=== PATIENT | male | born 1995 | race Caucasian/White ===

== ENCOUNTER → 2020-09-26 | Outpatient (CLI) | payer BC ==
--- NOTE | 2020-09-26 09:48 | US ---
EXAMINATION TYPE: US renal artery duplex complet DATE OF EXAM: 09/26/2020 COMPARISON: NONE CLINICAL HISTORY: I10 Essential hypertension. HTN for 1 month MEASUREMENTS: RENAL SIZE: Rt Kidney: 10.8 x 5.0 x 5.1cm Lt Kidney: 12.2 x 5.8 x 5.3cm RESISTANCE INDEX Right: 0.62 Left: 0.62 RA/AO RATIO (< 3.5 ) Right: 1.3 Left: 1.4 RA VELOCITY ( < 180 cm/s) Right: 170.7cm/s Left: 174.2cm/s Technical limitations due to patient's body habitus and large amount of overlying bowel content. Pr oximal aorta obscured. visualized portions of aorta appear unremarkable. Renals appear unremarkable. No evidence of renal artery stenosis as visualized. Limited evaluation of left renal artery due to ov erlying bowel content. Visualized portion of aorta shows no aneurysm. Kidneys are symmetric and within normal limits in size . No hydronephrosis. Renal velocity measurements upper limits of normal. Ratios and resistive indices are within normal limits. Satisfactory phasicity. IMPRESSION: No convincing evidence for hemodynamic significant focal renal artery stenosis. Findings correlate with underlying uncontrolled hypertension with velocity measurements upper limits of normal .
== END ==
LOC: RADUSWWP 07:09
PROVIDERS: ATTEND Family Medicine
DX: I10 Essential (primary) hypertension (principal)
CPT/HCPCS: 93975

== ENCOUNTER → 2021-07-23 | Outpatient (CLI) | payer BC ==
[2021-07-23 12:33] LABS: Basophils # (A) 0.1 k/uL (0-0.2); Basophils % (A) 1 %; Eosinophils # (A) 0.3 k/uL (0-0.7); Eosinophils % (A) 2 %; HCT 48.3 % (39.0-53.0); HGB 16.3 gm/dL (13.0-17.5); Lymphocytes # (A) 2.3 k/uL (1.0-4.8); Lymphocytes % (A) 22 %; MCH 28.1 pg (25.0-35.0); MCHC 33.8 g/dL (31.0-37.0); MCV 83.1 fL (80.0-100.0); Mean Platelet Volume 8.4; Monocytes # (A) 0.6 k/uL (0-1.0); Monocytes % (A) 6 %; Neutrophils # (A) 7.1 k/uL (1.3-7.7); Neutrophils % (A) 68 %; Platelet Count 247 k/uL (150-450); RBC 5.81 m/uL (4.30-5.90); RDW 13.3 % (11.5-15.5); WBC 10.5 k/uL (3.8-10.6)
[2021-07-23 12:45] LABS: INR 0.9 (<1.2); Partial Thromboplastin Time 23.8 sec (22.0-30.0)
[2021-07-23 12:58] LABS: ALT 42 U/L (4-49); AST 40 U/L (17-59); African American GFR (CKD) >90 (>60 ml/min/1.73 sqM); Albumin 4.3 g/dL (3.5-5.0); Albumin/Globulin Ratio 1.5; Alkaline Phosphatase 91 U/L (38-126); Anion Gap 11 mmol/L; Blood Urea Nitrogen 15 mg/dL (9-20); Calcium 9.4 mg/dL (8.4-10.2); Carbon Dioxide 23 mmol/L (22-30); Chloride 105 mmol/L (98-107); Globulin 2.9 g/dL; Glucose 116 mg/dL (74-99); Non-African American GFR(CKD) >90 (>60 ml/min/1.73 sqM); Potassium 4.1 mmol/L (3.5-5.1); Sodium 139 mmol/L (137-145); Total Bilirubin 0.6 mg/dL (0.2-1.3); Total Protein 7.2 g/dL (6.3-8.2)
[2021-07-23 13:14] LABS: T4, Free (Free Thyroxine) 1.03 ng/dL (0.78-2.19)
[2021-07-23 19:17] LABS: Chol/HDL Ratio 5.93 Ratio
== END | disposition home or self-care (01) ==
LOC: LABWHC1 11:18
PROVIDERS: ATTEND Physician Assistant Medical
DX: R07.89 Other chest pain (principal)
CPT/HCPCS: 36415; 80053; 80061; 84439; 84443; 84484; 85025; 85610; 85730

== ENCOUNTER → 2021-08-05 | Outpatient (CLI) | payer BC ==
--- NOTE | 2021-08-05 12:37 | ECHOF ---
Referral Reason:R07.89 chest pain MEASUREMENTS -------- HEIGHT: 180.3 cm WEIGHT: 148.8 kg BP: RVIDd: 3.1 cm (< 3.3) IVSd: 1.2 cm (0.6 - 1.1) LVIDd: 4.5 cm (3.9 - 5.3) LVPWd: 1.1 cm (0.6 - 1.1) IVSs: 1.4 cm LVIDs: 3.0 cm LVPWs: 1.7 cm LA Diam: 4.0 cm (2.7 - 3.8) MV E Tamir: 0.76 m/s MV DecT: 159 ms MV A Tamir: 0.80 m/s MV E/A Ratio: 0.96 RAP: 5.00 mmHg RVSP: 12.14 mmHg FINDINGS -------- Sinus rhythm. This was a technically adequate study. Morbid Obesity LV size, wall thickness and systolic function are normal, with an EF greater than 55%. The left silviano tricular size is normal. The right ventricle is normal in size. The left atrial size is normal. The right atrial size is normal. The aortic valve is trileaflet, and appears structurally normal. No aortic stenosis or regurgitation. Mild mitral regurgitation is present. Mild tricuspid regurgitation present. Right ventricular systolic pressure is normal at < 35 mmHg. There is no pulmonic regurgitation present. There is no pericardial effusion. CONCLUSIONS -------- 1. Morbid Obesity 2. LV size, wall thickness and systolic function are normal, with an EF greater than 55%. 3. The left ventricular size is normal. 4. The right ventricle is normal in size. 5. The left atrial size is normal. 6. The right atrial size is normal. 7. The aortic valve is trileaflet, and appears structurally normal. No aortic stenosis or regurgitati on. 8. Mild mitral regurgitation is present. 9. Mild tricuspid regurgitation present. 10. There is no pericardial effusion. MAMMAL KEEPER: Jonna Lopez RDCS
== END | disposition home or self-care (01) ==
LOC: RADECHMAIN 08:25
PROVIDERS: ATTEND Family Medicine
DX: I08.1 Rheumatic disorders of both mitral and tricuspid valves (principal); E66.01 Morbid (severe) obesity due to excess calories
CPT/HCPCS: 93306

== ENCOUNTER → 2021-09-24 | Outpatient (CLI) | payer BC ==
--- NOTE | 2021-09-24 11:00 | P.STRESS ---
- Stress Test Note Stress Test Results/Findings: Exam Performed: stress test Exam Date: 09/24/21 Reason for Exam: CHEST PAIN Height: 5 ft 11 in Weight: 145.15 kg Protocol: DAVID Stage: 4 Duration of Exercise: 10:09 Resting Heart Rate: 92 Resting Blood Pressure: 165/94 Maximum Achieved Heart Rate: 168 Maximum Achieved Blood Pressure: 207/73 85% PMHR: 167 100% PMHR: 197 METS: 12.1 Technologist Comment: Stress Test Results/Findings: This is a 25-year-old gentleman with history of hypertension and hypercholesterolemia being evaluated for symptoms of chest pain. Stress data: Baseline EKG showed a sinus rhythm. Blood pressure at rest is 165/94 with a pulse of 92. Patient walked on the David protocol for 10 minutes and 9 seconds achieving a maximal heart rate of 168 with a blood pressure of 207/73. EKGs taken during and after exercise did not reveal any significant changes from the baseline. Patient complained of slight chest pain. No arrhythmias were detected. Final impression: #1. Negative stress test #2. Patient complained of some atypical chest pain #3. Good exercise capacity #4. No arrhythmias noted
== END | disposition home or self-care (01) ==
LOC: RADNMMAIN 09-23 08:15
PROVIDERS: ATTEND Family Medicine
DX: R07.89 Other chest pain (principal)
CPT/HCPCS: 93017

== ENCOUNTER → 2022-03-02 | Outpatient (CLI) | payer OTHER ==
--- NOTE | 2022-03-02 14:49 | US ---
EXAMINATION TYPE: US axilla RT DATE OF EXAM: 03/02/2022 COMPARISON: NONE CLINICAL HISTORY: L02.411 CUTANEOUS ABSCESS OF RIGHT AXILLA. Abscess of right axilla. Scanned right axilla. Questionable area seen- possible lymph node versus normal tissue, hypoechoic area seen with hyperecho ic center: 3.8 x 1.4 x 2.9 cm. This is felt to more likely be a lymph node. No suspicious hypoechoic collections to suggest underlying abscess remain present. No suspicious hemo rrhage is identified. IMPRESSION: 1. No suspicious collections suggest hemorrhage or abscess formation in the right axilla.
== END | disposition home or self-care (01) ==
LOC: RADUSWWP 13:52
PROVIDERS: ATTEND Family Medicine
DX: L02.411 Cutaneous abscess of right axilla (principal)

== ENCOUNTER → 2024-09-21 | Outpatient (CLI) | payer BC ==
--- NOTE | 2024-09-21 10:02 | US ---
EXAMINATION TYPE: US scrotum with doppler. DATE OF EXAM: 09/21/2024 COMPARISON: NONE CLINICAL INDICATION: Male, 28 years old with history of N50.811 R TESTICULAR PAIN R10.2 PELV PERINEAL PAIN; Left testicular pain radiating into stomach < 1 month and is intermittent lasting a few days a t a time; Patient denies any injury but does heavy lifting for work. Patient denies any other signs, symptoms, or relevant history TECHNIQUE: Grayscale, color Doppler and spectral Doppler imaging of the scrotum. FINDINGS: EXAM MEASUREMENTS: TESTICLES: Right Testicle: 4.1 x 2.2 x 3.1 cm Left Testicle: 2.2 x 2.1 x 1.9 cm EPIDIDYMIS HEAD: Right Epididymis: 1.2 x 1.5 x 1.2 cm Left Epididymis: 1.2 x 1.8 x 0.8 cm Doppler performed to assess for testicular vascularity; good bilateral color flow and spectral wavefo dana are seen. Presence of hydroceles: No Presence of varicoceles: No ? Hypoechoic area noted within left groin/inguinal area lateral to left testicle. No movement with va lsalva and no vascularity seen = 1.2 x 0.8 x 2.6 cm . Probable small fat-containing inguinal hernia. IMPRESSION: Symmetric blood flow to bilateral testicles. [facility], , 09/21/2024 9:59 AM
[2024-09-21 15:19] LABS: Basophils # (A) 0.06 X 10*3/uL (0.00-0.10); Basophils % (A) 0.5 %; Eosinophils # (A) 0.26 X 10*3/uL (0.04-0.35); Eosinophils % (A) 2.2 %; HCT 49.7 % (39.6-50.0); HGB 16.3 g/dL (13.0-17.0); Lymphocytes # (A) 2.82 X 10*3/uL (0.90-5.00); Lymphocytes % (A) 24.1 %; MCH 27.5 pg (27.0-32.0); MCHC 32.8 g/dL (32.0-37.0); MCV 83.8 FL (80.0-97.0); Mean Platelet Volume 11.5 FL (9.5-12.2); Monocytes # (A) 0.87 X 10*3/uL (0.20-1.00); Monocytes % (A) 7.4 %; NRBC Per 100 WBC 0 X 10*3/uL (0.00-0.01); Neutrophils # (A) 7.61 X 10*3/uL (1.80-7.70); Platelet Count 266 X 10*3/uL (140-440); RBC 5.93 X 10*6/uL (4.40-5.60); RDW 13.2 % (11.5-14.5); WBC 11.71 X 10*3/uL (4.50-10.00)
[2024-09-21 15:34] LABS: ALT 46 U/L (10-49); AST 33 U/L (14-35); Albumin 4.4 g/dL (3.8-4.9); Albumin/Globulin Ratio 1.63 Ratio (1.60-3.17); Alkaline Phosphatase 105 U/L (41-126); BUN/Creat Ratio 17.56 Ratio (12.00-20.00); Blood Urea Nitrogen 15.8 mg/dL (9.0-27.0); Calcium 9.6 mg/dL (8.7-10.3); Carbon Dioxide 26.6 mmol/L (21.6-31.8); Chloride 104 mmol/L (96-109); Chol/HDL Ratio 5.71 Ratio; Globulin 2.7 g/dL (1.6-3.3); Glucose 120 mg/dL (70-110); LDL Cholesterol,Calculated 124.6 mg/dL (0.0-131.0); Potassium 4.5 mmol/L (3.5-5.5); Sodium 142 mmol/L (135-145); Total Bilirubin 0.4 mg/dL (0.3-1.2); Total Protein 7.1 g/dL (6.2-8.2)
[2024-09-21 16:18] LABS: HSV I IgG Interp Negative (Negative); HSV II IgG Interp Negative (Negative)
[2024-09-21 16:35] LABS: HIV 2 AB Non-Reactive (Non-Reactive); HIV AB P24 Non-Reactive (Non-Reactive); HIV P24 AG Non-Reactive (Non-Reactive)
[2024-09-22 13:14] LABS: C. trachomatis,PCR Negative (Negative)
[2024-09-22 13:29] LABS: N. gonorrhoeae,PCR Negative (Negative)
== END | disposition home or self-care (01) ==
LOC: RADUSWWP 09:20
PROVIDERS: ATTEND Family Medicine
DX: Z00.00 Encounter for general adult medical examination without abnormal findings (principal); Z11.3 Encounter for screening for infections with a predominantly sexual mode of transmission; N50.811 Right testicular pain; R10.2 Pelvic and perineal pain; E78.5 Hyperlipidemia, unspecified
CPT/HCPCS: 76870; 80053; 80061; 83036; 85025; 86141; 86695; 86696; 86780; 87390; 87491; 87591; 93975